=== PATIENT | male | born 1985 | race Caucasian/White ===

== ENCOUNTER 2017-08-30 07:16 | Emergency (ER) | payer MEDICAID ==
[2017-08-30] MEDS: IPRATROPIUM (NEB) 0.5 MG/2.5 ML AMP HHN (08:35)
[2017-08-30] MEDS: ALBUTEROL 0.083% (NEB) 2.5 MG/3 ML AMP HHN (08:35)
[2017-08-30] MEDS: METHYLPREDNISOLONE 125 MG INJ IM (09:33)
[2017-08-30] MEDS: ALBUTEROL 0.5% (NEB) 2.5 MG/0.5 ML AMP INH (09:47)
== END 2017-08-30 10:38 | disposition home or self-care (01) ==
LOC: FTE 07:16
DX: J45.901 Unspecified asthma with (acute) exacerbation (principal); J06.9 Acute upper respiratory infection, unspecified
CPT/HCPCS: 94644; 94664; 96372; 99284-25